=== PATIENT | male | born 1995 | race Caucasian/White ===

== ENCOUNTER 2017-02-21 15:19 | Emergency (ER) | payer BC ==
[2017-02-21 15:54] VITALS: BP 122/61
--- NOTE | 2017-02-21 16:16 | UC ---
Lower Extremity/Ankle HPI - HPI Summary HPI Summary: Pt reports playing soccer this morning at 1030 and running and inverting left ankle. Pt c/o of swelling tenderness, inabilityto bear weight and decrease in ROM. Pt has taken ibuprofen and applied ice. - History of Current Complaint Stated Complaint: LEFT ANKLE INJURY Time Seen by Provider: 02/21/17 15:58 Hx Obtained From: Patient Onset/Duration: Sudden Onset, Lasting Hours Severity Initially: Moderate Severity Currently: Moderate Aggravating Factor(s): Standing, Ambulation Alleviating Factor(s): Rest, Elevation, Ice Able to Bear Weight: No - Risk Factors Gout Risk Factors: Male DVT Risk Factors: Negative Septic Arthritis Risk Factor: Negative - Allergies/Home Medications Allergies/Adverse Reactions: Allergies Allergy/AdvReac Type Severity Reaction Status Date / Time No Known Allergies Allergy Verified 02/21/17 15:47 Home Medications: Home Medications Ibuprofen TAB* [Advil TAB*] 200 mg PO Q6H PRN 02/21/17 [History Confirmed ] PMH/Surg Hx/FS Hx/Imm Hx Previously Healthy: Yes - Surgical History Surgical History: None - Family History Known Family History: Positive: Other - positive FMH for myalgia - Social History Occupation: Student - [employer] Alcohol Use: Rare Substance Use Type: None Smoking Status (MU): Never Smoked Tobacco Review of Systems Constitutional: Negative Skin: Other - swelling left lateral ankle Eyes: Negative ENT: Negative Respiratory: Negative Cardiovascular: Negative Gastrointestinal: Negative Genitourinary: Negative Motor: Decreased ROM - left ankle Neurovascular: Negative Musculoskeletal: Arthralgia - left ankle, Decreased ROM - left ankle, Edema - left lateral malleolus, Myalgia Neurological: Negative Psychological: Negative All Other Systems Reviewed And Are Negative: Yes Physical Exam Triage Information Reviewed: Yes Appearance: Well-Appearing Vital Signs: Initial Vital Signs Temp 98.1 F 02/21/17 15:47 Pulse 61 02/21/17 15:47 Resp 16 02/21/17 15:47 BP 122/61 02/21/17 15:47 Pulse Ox 98 02/21/17 15:47 Vital Signs Reviewed: Yes Eye Exam: Normal Respiratory Exam: Other Respiratory: Positive: No respiratory distress Musculoskeletal: Positive: Strength Limited @ - left ankle, ROM Limited @ - left ankle, Edema @ - left lateral malleolus Neurological Exam: Normal Psychological Exam: Normal Skin Exam: Normal Lower Extremity Course/Dx - Differential Dx/Diagnosis Differential Diagnosis/HQI/PQRI: Fracture (Closed), Sprain, Strain Provider Diagnoses: left ankle sprain Discharge - Discharge Plan Condition: Stable Disposition: HOME Patient Education Materials: Ankle Sprain (ED), Ankle Exercises (GEN) Referrals: [facility] [Outside] Edelmira Goode MD [Medical Doctor] - Additional Instructions: Please follow up with your PCP or return to clinic as needed.
--- NOTE | 2017-02-21 16:24 | RAD ---
INDICATION: Left ankle injury COMPARISON: None TECHNIQUE: AP, lateral, and oblique views were obtained. FINDINGS: There is no acute fracture or dislocation. There is lateral soft tissue swelling. IMPRESSION: SOFT TISSUE SWELLING. NO ACUTE FRACTURE.
== END 2017-02-21 16:53 | disposition home or self-care (01) ==
LOC: UCCORT 15:19
DX: S93.402A Sprain of unspecified ligament of left ankle, initial encounter (principal); X50.1XXA Overexertion from prolonged static or awkward postures, initial encounter; Y93.66 Activity, soccer; Y92.322 Soccer field as the place of occurrence of the external cause
CPT/HCPCS: 99203; G0463